=== PATIENT | male | born 1965 | race Caucasian/White ===

== ENCOUNTER 2016-07-28 20:25 | Inpatient (IN) | payer OTHER ==
[~2016-07-28] VITALS: Ht 182.9 cm; Wt 102.5 kg
[2016-07-29 00:26] LABS: FREE T4 1.41 ng/dL (0.76-1.46); FREE THYROXINE INDEX 3.7 ug/dL (1.4-4.5); T4(THYROXINE) 11.2 ug/dL (4.7-13.3)
[2016-07-29 00:28] LABS: T3 TOTAL 1.3 ng/mL
[2016-07-29 00:35] LABS: CALCIUM 8.6 mg/dL (8.5-10.1); CARBON DIOXIDE 25.5 mmol/L (21-32); CHLORIDE SERUM 104 mmol/L (98-107); GFR1 > 60 mL/min; GLUCOSE SERUM 101 mg/dL (74-106); POTASSIUM SERUM 4.6 mmol/L (3.5-5.1); SODIUM SERUM 141 mmol/L (136-145)
[2016-07-29 00:46] LABS: ALKALINE PHOSPHATASE 100 U/L (46-116); ALT/SGPT 27 U/L (16-63); AST/SGOT 33 U/L (15-37); BILIRUBIN TOTAL 0.5 mg/dL (0.20-1.00); TOTAL PROTEIN, SERUM 6.8 g/dL (6.4-8.2)
[2016-07-29 00:52] LABS: CK-MB 1.3 ng/mL (0-3.6)
[2016-07-29 00:58] LABS: microscopic required? NO
[2016-07-29 01:06] LABS: UA SPECIFIC GRAVITY 1.025 (1.005-1.035); urine erythrocyte NEGATIVE (NEGATIVE)
[2016-07-29] MEDS ORDERED: ROBAXIN500 MG PO (01:30)
[2016-07-29] MEDS ORDERED: NEU300 PO (01:30)
[2016-07-29] MEDS ORDERED: OXYCODONE HYDRO10 M1 PO (01:30)
[2016-07-29] MEDS ORDERED: LOSARTAN POTASS25 M1 PO (01:30)
[2016-07-29] MEDS ORDERED: GOOD SENSE OMEP20 MG PO (01:30)
[2016-07-29] MEDS ORDERED: IBUPROFEN400 MG PO (01:31)
[2016-07-29 01:35] LABS: BASOPHIL % 1.1 % (0-2); PLATELET COUNT 223 x10^3mcL (130-400)
[2016-07-29 02:11] LABS: AMPHETAMINE QUAL UR POSITIVE (NEG <=1000)
[2016-07-29 02:32] LABS: ERYTHROCYTE SED RATE 46 mm/hr (0-15)
[2016-07-29 02:42] LABS: CHOLESTEROL/HDL RATIO 2.4
[2016-07-29 02:43] VITALS: BP 143/80
[2016-07-29 03:01] VITALS: BP 143/80
[2016-07-29 05:42] VITALS: BP 151/87
[2016-07-29 17:48] VITALS: BP 147/87
[2016-07-29 21:57] VITALS: BP 143/79
[2016-07-30 06:26] LABS: BASOPHIL % 0.2 % (0-2); PLATELET COUNT 217 x10^3mcL (130-400); RED CELL DISTRIBUTION WIDTH 13.1 % (11.5-14.5)
[2016-07-30 06:39] LABS: CALCIUM 8.4 mg/dL (8.5-10.1); CARBON DIOXIDE 26.4 mmol/L (21-32); CHLORIDE SERUM 109 mmol/L (98-107); CREATININE SERUM 0.9 mg/dL (0.7-1.3); GFR1 > 60 mL/min; GLUCOSE SERUM 108 mg/dL (74-106); POTASSIUM SERUM 3.6 mmol/L (3.5-5.1); SODIUM SERUM 141 mmol/L (136-145)
[2016-07-30 06:49] LABS: ALBUMIN 2.2 g/dL (3.4-5.0)
[2016-07-30 07:14] VITALS: BP 128/79
[2016-07-30 09:21] VITALS: BP 125/80
[2016-07-30 17:38] VITALS: BP 105/55
[2016-07-30 19:30] VITALS: BP 101/61
[2016-07-30 21:03] VITALS: BP 106/60
[2016-07-31 05:26] VITALS: BP 138/94
[2016-07-31 06:52] LABS: CALCIUM 8.2 mg/dL (8.5-10.1); CARBON DIOXIDE 26.2 mmol/L (21-32); CHLORIDE SERUM 110 mmol/L (98-107); CREATININE SERUM 1.1 mg/dL (0.7-1.3); GFR1 > 60 mL/min; GLUCOSE SERUM 103 mg/dL (74-106); MAGNESIUM 1.9 mg/dL (1.8-2.4); PHOSPHOROUS 2.5 mg/dL (2.5-4.9); POTASSIUM SERUM 3.7 mmol/L (3.5-5.1); SODIUM SERUM 144 mmol/L (136-145)
[2016-07-31 07:42] LABS: PLATELET COUNT 237 x10^3mcL (130-400); RED CELL DISTRIBUTION WIDTH 13.2 % (11.5-14.5)
[2016-07-31 07:43] LABS: BASOPHIL % 0 % (0-2)
[2016-07-31 09:24] VITALS: BP 133/79
[2016-07-31 17:08] VITALS: BP 129/81
[2016-07-31 19:20] VITALS: BP 117/62
[2016-07-31 21:30] VITALS: BP 113/77
[2016-08-01 05:49] VITALS: BP 111/72
[2016-08-01 06:19] LABS: CALCIUM 8.1 mg/dL (8.5-10.1); CARBON DIOXIDE 26.6 mmol/L (21-32); CHLORIDE SERUM 111 mmol/L (98-107); CREATININE SERUM 1.2 mg/dL (0.7-1.3); GFR1 > 60 mL/min; GLUCOSE SERUM 90 mg/dL (74-106); MAGNESIUM 1.7 mg/dL (1.8-2.4); PHOSPHOROUS 3.8 mg/dL (2.5-4.9); POTASSIUM SERUM 3.3 mmol/L (3.5-5.1); SODIUM SERUM 146 mmol/L (136-145)
[2016-08-01 06:43] LABS: BASOPHIL % 0.3 % (0-2); PLATELET COUNT 259 x10^3mcL (130-400); RED CELL DISTRIBUTION WIDTH 13.3 % (11.5-14.5)
[2016-08-01] MEDS ORDERED: CLEOCIN HCL150 MG PO (09:28)
[2016-08-01] MEDS ORDERED: LAC PO (09:29)
[2016-08-01] MEDS ORDERED: DOXYCYCLINE HY100 MG PO (09:29)
[2016-08-01 09:37] VITALS: BP 126/58
[2016-08-01 12:10] VITALS: BP 126/58
== END 2016-08-01 13:35 | disposition home or self-care (01) | DRG 364 ==
LOC: ED 20:25 → DU 07-29 01:15 → MU 07-29 01:15 → DU 07-29 02:51 → MU 07-29 08:04
PROVIDERS: Family Medicine; Specialist; Surgery; ADMIT Family Medicine
PROC: 05HM3DZ Insertion of Intraluminal Device into Right Internal Jugular Vein, Percutaneous Approach (ICD-10-PCS; 2016-07-29)
PROC: B543ZZA Ultrasonography of Right Jugular Veins, Guidance (ICD-10-PCS; 2016-07-29)
PROC: 0J9F0ZZ Drainage of Left Upper Arm Subcutaneous Tissue and Fascia, Open Approach (ICD-10-PCS; principal; 2016-07-29 09:30)
DX: L03.114 Cellulitis of left upper limb (principal); N17.0 Acute kidney failure with tubular necrosis; E43 Unspecified severe protein-calorie malnutrition; K21.9 Gastro-esophageal reflux disease without esophagitis; I10 Essential (primary) hypertension; M06.9 Rheumatoid arthritis, unspecified; B18.2 Chronic viral hepatitis C; F15.10 Other stimulant abuse, uncomplicated; F11.10 Opioid abuse, uncomplicated; M86.8X6 Other osteomyelitis, lower leg; Z79.899 Other long term (current) drug therapy; F17.200 Nicotine dependence, unspecified, uncomplicated; L02.414 Cutaneous abscess of left upper limb; E72.4 Disorders of ornithine metabolism; D64.9 Anemia, unspecified; K72.90 Hepatic failure, unspecified without coma; M19.90 Unspecified osteoarthritis, unspecified site; Z68.30 Body mass index [BMI] 30.0-30.9, adult; Z79.1 Long term (current) use of non-steroidal anti-inflammatories (NSAID)
CPT/HCPCS: 36600; 80307; 83880; 84439; 90732; 94150; G0480; J1170; J1720; J2001; J2060; J2250; J2270; J2405; J2543; J2765; J3490; J7030; J7120; Q0092

== ENCOUNTER 2016-09-27 08:55 | Emergency (ER) | payer OTHER ==
[~2016-09-27] VITALS: Ht 182.9 cm; Wt 103.0 kg
[~2016-09-27 08:55] MED LIST: CLEOCIN HCL150 MG PO; DOXYCYCLINE HY100 MG PO; GOOD SENSE OMEP20 MG PO; IBUPROFEN400 MG PO; LAC PO; LOSARTAN POTASS25 M1 PO; NEU300 PO; OXYCODONE HYDRO10 M1 PO; ROBAXIN500 MG PO
[2016-09-27 10:06] VITALS: BP 137/93
== END 2016-09-27 10:06 | disposition home or self-care (01) ==
LOC: ED 08:55
DX: S80.12XA Contusion of left lower leg, initial encounter (principal); M06.9 Rheumatoid arthritis, unspecified; M86.9 Osteomyelitis, unspecified; I10 Essential (primary) hypertension; W22.8XXA Striking against or struck by other objects, initial encounter; Y93.89 Activity, other specified; Y99.8 Other external cause status; Y92.89 Other specified places as the place of occurrence of the external cause

== ENCOUNTER 2016-10-25 15:15 | Emergency (ER) | payer OTHER ==
[~2016-10-25] VITALS: Ht 182.9 cm; Wt 100.3 kg
[2016-10-25 15:24] VITALS: BP 139/91
== END 2016-10-25 16:10 | disposition home or self-care (01) ==
LOC: ED 15:15
DX: L03.116 Cellulitis of left lower limb (principal); I10 Essential (primary) hypertension; M19.90 Unspecified osteoarthritis, unspecified site; Z79.899 Other long term (current) drug therapy
CPT/HCPCS: 82962; J0295

== ENCOUNTER 2016-11-03 17:48 | Emergency (ER) | payer OTHER ==
[~2016-11-03] VITALS: Ht 177.8 cm; Wt 99.8 kg
[2016-11-03 21:19] VITALS: BP 108/71
== END 2016-11-03 21:29 | disposition home or self-care (01) ==
LOC: ED 17:48
DX: G89.29 Other chronic pain (principal); M54.5 Low back pain; I10 Essential (primary) hypertension; Z79.1 Long term (current) use of non-steroidal anti-inflammatories (NSAID)

== ENCOUNTER 2017-09-21 20:22 | Emergency (ER) | payer OTHER ==
[~2017-09-21] VITALS: Ht 185.4 cm; Wt 93.0 kg
[2017-09-21 20:31] VITALS: Ht 185.4 cm; Wt 93.0 kg
[2017-09-21 21:48] VITALS: BP 121/78
== END 2017-09-21 21:48 | disposition home or self-care (01) ==
LOC: ED 20:22
DX: G89.29 Other chronic pain (principal); F17.210 Nicotine dependence, cigarettes, uncomplicated; I10 Essential (primary) hypertension
CPT/HCPCS: 99406; J1885

== ENCOUNTER 2019-07-04 10:11 | Emergency (ER) | payer OTHER ==
[~2019-07-04] VITALS: Ht 182.9 cm; Wt 102.1 kg
[2019-07-04 10:13] VITALS: Ht 182.9 cm; Wt 102.1 kg
[2019-07-04 13:37] VITALS: BP 169/98
== END 2019-07-04 13:55 | disposition home or self-care (01) ==
LOC: ED 10:11
DX: T40.601A Poisoning by unspecified narcotics, accidental (unintentional), initial encounter (principal); R41.82 Altered mental status, unspecified; I10 Essential (primary) hypertension; M19.90 Unspecified osteoarthritis, unspecified site; F17.210 Nicotine dependence, cigarettes, uncomplicated; Y92.410 Unspecified street and highway as the place of occurrence of the external cause